=== PATIENT | female | born 1945 | race Caucasian/White ===

== ENCOUNTER 2022-06-20 11:24 | Outpatient (CLI) | payer MEDICARE, OTHER, SELFPAY ==
[2022-06-20 14:07] LABS: Chloride* 104 mmol/L (96-114); Sodium* 140 mmol/L (135-149)
[2022-06-20 14:09] LABS: Cholesterol* 262 mg/dL (90-199)
[2022-06-20 14:10] LABS: Blood Urea Nitrogen* 40 mg/dL (7-30); Carbon Dioxide* 23 mmol/L (20-32); Creatinine* 1.6 mg/dL (0.5-1.5); Estimated Glomerular Filt Rate 33 ml/min; Glucose* 105 mg/dL (60-115); Triglycerides* 194 mg/dL (40-149)
[2022-06-20 14:11] LABS: Calcium* 9.3 mg/dL (8.4-10.6); HDL Cholesterol* 44 mg/dL (>=50); LDL Cholesterol Calculated 179 mg/dL (<100)
[2022-06-20 15:21] LABS: TSH With Reflex to FT4* 0.651 uIU/mL (0.270-4.200)
== END 2022-06-20 11:25 | disposition home or self-care (01) ==
PROVIDERS: PCP Internal Medicine; Visit Provider Internal Medicine
DX: E78.5 Hyperlipidemia, unspecified (principal); E03.9 Hypothyroidism, unspecified; I10 Essential (primary) hypertension; M10.9 Gout, unspecified
CPT/HCPCS: 80048; 80061; 84443

== ENCOUNTER 2023-02-26 22:22 | Observation (INO) | payer OTHER, SELFPAY ==
[2023-02-26 22:28] VITALS: BP 169/66; PULSE 70; RESP 26; TEMP 36.4; O2SAT 93; BMI 26.6
--- NOTE | 2023-02-26 22:50 | CRLHL7_ITS ---
For Patients: As a result of the Century Cures Act, medical imaging exams and procedure reports are released immediately into your electronic medical record. You may view this report before your referring provider. If you have questions, please contact your health care provider. INDICATION: . TECHNIQUE: CT abdomen and pelvis without contrast. COMPARISON: None. FINDINGS: Lower chest: Partially imaged left lower lobe consolidation versus atelectasis and pleural effusion. Small right pleural effusion with passive atelectasis. Interlobular septal thickening. Cardiomegaly. Dilated, calcified aortic annulus. Liver: Normal in size and attenuation. No suspicious masses. Gallbladder and bile ducts: No stones or inflammation. No biliary dilatation. Pancreas: Unremarkable. No mass or inflammation. Spleen: Normal in size. No masses. Adrenal glands: Normal in size. No nodules. Kidneys, Ureters, and Bladder: Bilateral renal cortical cysts. No hydronephrosis, stone, or suspicious mass. The ureters and bladder are unremarkable. GI tract: Unremarkable. Normal in caliber. No sign of inflammation. Vasculature: Normal caliber abdominal aorta with mild atherosclerotic calcification. Left internal iliac artery stent. Lymph nodes: No lymphadenopathy. Peritoneum/Abdominal Wall: Unremarkable. No free air or significant free fluid. Pelvis: Status post hysterectomy. No pelvic masses. Bones: Right total hip arthroplasty. IMPRESSION: Left lower lobe consolidation versus atelectasis with bilateral pleural effusions and interlobular septal thickening. These findings are only partially imaged, but could represent pulmonary edema. Infection cannot be excluded. Consider chest CT for further evaluation. No acute findings within the abdomen and pelvis. No urolith or evidence of obstructive uropathy. Multiple, chronic ancillary findings, as above. Please note that all CT scans at this facility use dose modulation, iterative reconstruction, and/or weight-based dosing when appropriate to reduce radiation dose to as low as reasonably achievable. Dictated by Nestor Esteves MD @ 02/26/2023 11:55:04 PM (Electronically Signed)
--- NOTE | 2023-02-26 22:55 | ED.GENADULT ---
HPI - General Adult General Time Seen by Provider: 22:55 Date Seen: 02/26/23 Chief complaint: Shortness of Breath/Dyspnea Stated complaint: Short of Breath Time Seen by Provider: 02/26/23 22:23 Source: patient Mode of arrival: EMS Limitations: physical limitation History of Present Illness HPI narrative: Patient is a pleasant 78 year white female arrives by ambulance. She has had shortness of breath. She lives in [place] with her daughter. She has multiple medical problems including valvular heart disease, AFib chronic, stroke from AFib, anticoagulation. The patient does report though that her quality life is actually fairly good ?for someone who can get around in around ?. 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 She has also been out of her Lasix for the last several days probably 4-5 days, and has noted some fluid retention in her legs specially or left leg greater than right and shortness of breath. She also reports she has had some intermittent stomach pain that is been on and off in intensity but present all the time in her right upper quadrant and right mid abdomen. She reports that this has been waxing and waning. For last couple of days. She has had no vomiting fevers. . She has had no diarrhea, no constipation, no melena or bleeding rectally. She presents here with her daughter via ambulance. She got a nitro and felt a little better. She has had heart failure valvular heart disease, ischemic stroke, chronic AFib, pulmonary hypertension. When asked how we should proceed she is interested in looking at her abdominal pain, and helping her shortness of breath. Related Data Home Medications Medication Instructions Recorded Confirmed cholecalciferol (vitamin D3) 25 25 mcg PO QDAY 06/20/22 07/01/22 mcg (1,000 unit) capsule multivitamin 1 tab PO QAM 06/20/22 07/01/22 sotalol 80 mg tablet 80 mg PO BID 06/20/22 07/01/22 vitamin K2 100 mcg capsule 200 mcg PO DAILY 06/20/22 07/01/22 Previous Rx's Medication Instructions Recorded amlodipine 2.5 mg tablet 2.5 mg PO DAILY #90 tabs 06/20/22 losartan 50 mg tablet 50 mg PO DAILY #90 tabs 06/20/22 simvastatin 10 mg tablet 10 mg PO QPM #90 tabs 06/20/22 levothyroxine 88 mcg tablet 88 mcg PO .UD #78 tabs 08/02/22 colchicine 0.6 mg tablet 0.6 mg PO TID PRN gout #30 tabs 11/17/22 modafinil 100 mg tablet 100 mg PO QDAY #90 tabs 12/05/22 warfarin 4 mg tablet See Rx Instructions .Route 01/18/23 .COMPLEX #60 tabs furosemide 20 mg tablet 20 mg PO 3XW #36 tabs 02/21/23 Allergies Allergy/AdvReac Type Severity Reaction Status Date / Time gadodiamide Allergy Severe Anaphalacti Verified 07/01/22 11:05 c adhesive Allergy Intermediate Blisters Verified 07/01/22 11:05 benzoin Allergy Mild Garcia Verified 07/01/22 11:05 codeine Allergy Mild Swelling Verified 07/01/22 11:05 meperidine Allergy Mild Hypersensitive, Verified 07/01/22 11:05 headaches penicillin V Allergy Mild Swelling Verified 07/01/22 11:05 vancomycin Allergy Mild Body Verified 07/01/22 11:05 turned red, burning sensation shellfish derived Allergy Unknown Verified 07/01/22 11:05 Contrast dye Allergy Severe Anaphalacti Uncoded 07/01/22 11:05 c Erythromycin Allergy Severe Swelling Uncoded 07/01/22 11:05 of tongue DIATRIZOATE MEGLUMINE (IV Allergy Unknown Uncoded 07/01/22 11:05 CONTRAST UNLISTED ALLERGEN (INCLUDE Allergy Unknown Uncoded 07/01/22 11:05 DETAIL I Review of Systems Status of ROS: Reports: 6 or more systems reviewed and unremarkable except as noted in History and below [facility] Medical History (Updated 02/27/23 @ 08:27 by Rhiannon Le MD) Anticoagulation goal of INR 2 to 3 ?Z51.81 - Encounter for therapeutic drug level monitoring (ICD-10) ?Z79.01 - custodial (current) use of anticoagulants (ICD-10) Aortic valve regurgitation (12/28/11) ?I35.1 - Nonrheumatic aortic (valve) insufficiency (ICD-10) Aortic valve stenosis (10/03/11) ?I35.0 - Nonrheumatic aortic (valve) stenosis (ICD-10) Ascending aorta dilatation (08/03/18) ?I77.810 - Thoracic aortic ectasia (ICD-10) Chronic atrial fibrillation (10/03/11) ?I48.20 - Chronic atrial fibrillation, unspecified (ICD-10) Frailty syndrome in geriatric patient ?R54 - Age-related physical debility (ICD-10) Gout (07/08/13) ?M10.9 - Gout, unspecified (ICD-10) Heart failure with preserved ejection fraction ?I50.30 - Unspecified diastolic (congestive) heart failure (ICD-10) History of myocarditis (1978) ?Z86.79 - Personal history of other diseases of the circulatory system (ICD-10) Hyperlipidemia (10/03/11) ?E78.5 - Hyperlipidemia, unspecified (ICD-10) Hypothyroidism (10/03/11) ?E03.9 - Hypothyroidism, unspecified (ICD-10) Ischemic stroke (2010) ?I63.9 - Cerebral infarction, unspecified (ICD-10) Pulmonary hypertension (2017) ?I27.20 - Pulmonary hypertension, unspecified (ICD-10) Surgical History History of benign breast biopsy (1989) ?Z98.890 - Other specified postprocedural states (ICD-10) History of bladder suspension procedure (1980) ?Z98.890 - Other specified postprocedural states (ICD-10) ?Z87.448 - Personal history of other diseases of urinary system (ICD-10) History of carpal tunnel release (03/07/18) ?Z98.890 - Other specified postprocedural states (ICD-10) History of skin cancer ?Z85.828 - Personal history of other malignant neoplasm of skin (ICD-10) History of tonsillectomy (1945) ?Z90.89 - Acquired absence of other organs (ICD-10) History of total hip replacement (2007) ?Z96.649 - Presence of unspecified artificial hip joint (ICD-10) History of total knee replacement (1996) ?Z96.659 - Presence of unspecified artificial knee joint (ICD-10) History of vaginal hysterectomy (1989) ?Z90.710 - Acquired absence of both cervix and uterus (ICD-10) Status post cataract extraction (2012) ?Z98.49 - Cataract extraction status, unspecified eye (ICD-10) Family History Brother Colon cancer Social History Highest level of school completed/degree received: Associate degree: occupational, technical, vocational program Smoking Status: Never smoker Do you use any of these nicotine containing products: None Second hand tobacco smoke exposure: No How often do you have a drink containing alcohol: never How often do you have six or more drinks on one occasion: Never AUDIT-C Alcohol total score: 0 Non-prescribed substance use: denies use Caffeine: Yes (coffee) Little interest or pleasure in doing things: not at all Feeling down, depressed, or hopeless: not at all service: No Exam Narrative: Exam Narrative: Objective: Vital signs show slightly elevated blood pressure O2 sat 93% on room air, patient has an increased respiratory rate at 26. She is noncyanotic Talks in short sentences. HEENT is unremarkable no facial asymmetry neck is supple Lungs show basilar wheezes and crackles Heart rate and rhythm regular 2/6 systolic ejection murmur occasional ectopic beat noted Abdomen benign soft nontender, no palpable masses or peritonitis Extremities are no edema neurologic nonfocal Skin warm and dry in the periphery Const: Vital Signs, click to edit/add: Vital Signs - 24 hr 02/26/23 22:28 Temperature 97.5 F L Pulse Rate [Left] 70 Respiratory Rate 26 H Blood Pressure [Ri ght Upper Arm] 169/66 H Pulse Oximetry 93 Oxygen Delivery Me thod Room Air Course Vital Signs Vital signs: Initial Vital Signs Temperature 97.5 F L 02/26/23 22:28 Temperature Source Temporal Artery Scan 02/26/23 22:28 Pulse Rate 70 02/26/23 22:28 Pulse Rhythm Irregular 02/26/23 22:28 Respiratory Rate 26 H 02/26/23 22:28 Blood Pressure 169/66 H 02/26/23 22:28 Blood Pressure Mean 100 02/26/23 22:28 Pulse Oximetry 93 02/26/23 22:28 Oxygen Delivery Method Room Air 02/26/23 22:28 Vital Signs Temperature 97.5 F L 02/26/23 22:28 Pulse Rate 70 02/26/23 22:28 Respiratory Rate 26 H 02/26/23 22:28 Blood Pressure 169/66 H 02/26/23 22:28 Pulse Oximetry 93 02/26/23 22:28 Oxygen Delivery Method Room Air 02/26/23 22:28 Temperature 98.0 F 02/27/23 07:30 Pulse Rate 89 02/27/23 07:30 Respiratory Rate 14 02/27/23 07:30 Blood Pressure 115/67 02/27/23 07:30 Pulse Oximetry 95 02/27/23 07:30 Oxygen Delivery Method Room Air 02/27/23 07:30 Medical Decision Making MDM Narrative Medical decision making narrative: [age] year white female multiple medical problems, including congestive heart failure, ischemic stroke, chronic AFib, and valvular heart disease presents with shortness of breath and abdominal discomfort. She still has her gallbladder, she is in [place] working upper abdominal pains will get labs, CT scan without contrast of her abdomen and pelvis given her stage 3 kidney disease. I think also be reasonable to give her IV Lasix given she has been on Lasix for about 5 days, and I think that will help her breathing. Will to check a chest x-ray as well, IV Protonix for the abdominal discomfort, IV Lasix. EKG and troponin, laboratory studies. I think at this point given the patient's shortness of breath and abdominal pain we should admit her to observation IV diuresis serial cardiac enzymes, electrolyte checks, INR check. Will notify of L of admission Lab Data Labs: Lab Results 02/26/23 Range/Units 23:15 WBC 13.05 H (4.50-11.00) K/uL RBC 4.00 (4.00-5.20) m/uL Hgb 12.3 (12.0-16.0) gm/dL Hct 38.1 (33.0-51.0) % MCV 95 (80-100) fL MCH 31 (26-34) pg MCHC 32 (32-36) gm/dL RDW Coeff of Caleb 13.4 (11.5-15.5) % Plt Count 254 (140-440) K/uL Neut % (Auto) 81.7 H (42.0-72.0) % Lymph % (Auto) 7.4 L (20-44) % [place] % (Auto) 6.7 (0.0-11.0) % Eos % (Auto) 2.4 (0.0-7.0) % Baso % (Auto) 0.6 (0.0-3.0) % Neut # (Auto) 10.70 H (1.7-7.0) K/uL Lymph # (Auto) 1.00 (0.90-2.90) K/uL [place] # (Auto) 0.90 (0.00-0.90) K/UL Eos # (Auto) 0.30 (0.00-0.50) K/uL Baso # (Auto) 0.10 (0.00-0.30) K/uL INR 2.59 H (0.91-1.10) APTT 42 H (23-33) Seconds Sodium 138 (135-149) mmol/L Potassium 5.3 H (3.6-5.1) mmol/L Chloride 108 (96-114) mmol/L Carbon Dioxide 22 (20-32) mmol/L BUN 40 H (7-30) mg/dL Creatinine 1.2 (0.5-1.5) mg/dL Estimated Creat Clear 35.00 Estimated GFR 46 ml/min Glucose 133 H (60-115) mg/dL Calcium 8.6 (8.4-10.6) mg/dL Total Bilirubin 0.7 (0.1-1.5) mg/dL Direct Bilirubin 0.3 (0.0-0.5) mg/dL AST 53 H (12-35) U/L ALT 39 H (4-35) U/L Alkaline Phosphatase 84 (40-150) U/L Troponin I 0.04 (0.01-0.04) ng/mL C-Reactive Protein 2.2 H (0.5-1.0) mg/dL NT-Pro-B Natriuret Pep 29556 pg/mL Total Protein 8.1 (6.0-8.3) g/dL Albumin 4.1 (3.3-5.0) g/dL Amylase 68 (18-89) U/L SARS-CoV-2 (PCR) Negative SARS-CoV-2 (Negative) Influenza Type A (PCR) Negative PCR FLU A (Negative) Influenza Type B (PCR) Negative PCR FLU B (Negative) RSV (PCR) Negative PCR RSV (Negative) Discharge Plan Discharge Clinical Impression: Shortness of breath, Abdominal pain Patient Disposition: Admitted As Inpatient
[2023-02-26 23:23] LABS: Basophils Percent Auto 0.6 % (0.0-3.0); Eosinophils Percent Auto 2.4 % (0.0-7.0); Hematocrit 38.1 % (33.0-51.0); Hemoglobin* 12.3 gm/dL (12.0-16.0); Immature Granulocytes Pct Auto 1.2 %; Lymphocytes Percent Auto 7.4 % (20-44); Mean Corpuscular HGB Conc 32 gm/dL (32-36); Mean Corpuscular Hemoglobin 31 pg (26-34); Mean Corpuscular Volume 95 fL (80-100); Monocytes Percent Auto 6.7 % (0.0-11.0); Neutrophils Percent Auto 81.7 % (42.0-72.0); Platelet Count* 254 K/uL (140-440); RDW Coefficient of Variation % 13.4 % (11.5-15.5); White Blood Count* 13.05 K/uL (4.50-11.00)
[2023-02-26 23:27] LABS: Slide Review Reflex No
[2023-02-26] MEDS: FUROSEMIDE 10 MG/ML inj 80 MG IV (23:31)
[2023-02-26] MEDS: PANTOPRAZOLE SODIUM 40 MG INJ IVP (23:31)
[2023-02-26 23:37] LABS: Albumin* 4.1 g/dL (3.3-5.0); Chloride* 108 mmol/L (96-114)
[2023-02-26 23:38] LABS: Potassium* 5.3 mmol/L (3.6-5.1); Sodium* 138 mmol/L (135-149)
[2023-02-26 23:40] LABS: Amylase* 68 U/L (18-89); Aspartate Amino Transferase* 53 U/L (12-35); Bilirubin Direct* 0.3 mg/dL (0.0-0.5); Bilirubin Total* 0.7 mg/dL (0.1-1.5); Carbon Dioxide* 22 mmol/L (20-32); Creatinine* 1.2 mg/dL (0.5-1.5); Estimated Glomerular Filt Rate 46 ml/min; INR 2.59 (0.91-1.10); Total Protein* 8.1 g/dL (6.0-8.3)
[2023-02-26 23:41] LABS: Alanine Aminotransferase* 39 U/L (4-35); Alkaline Phosphatase* 84 U/L (40-150); Blood Urea Nitrogen* 40 mg/dL (7-30); Calcium* 8.6 mg/dL (8.4-10.6); Glucose* 133 mg/dL (60-115); Partial Thromboplastin Time* 42 Seconds (23-33)
[2023-02-26 23:43] LABS: C Reactive Protein* 2.2 mg/dL (0.5-1.0)
[2023-02-26 23:49] LABS: NT Pro B Type NatriureticPept* 18400 pg/mL
[2023-02-26 23:52] LABS: Troponin I* 0.04 ng/mL (0.01-0.04)
[2023-02-26 23:59] LABS: PCR FLU A Negative PCR FLU A (Negative); PCR FLU B Negative PCR FLU B (Negative); PCR RSV Negative PCR RSV (Negative)
[2023-02-27] VITALS (9 sets, daily range): BP systolic 103–144; BP diastolic 47–76; PULSE 63–89; RESP 14–24; TEMP 36.4–36.7; O2SAT 95–98; BMI 26.9
[2023-02-27 00:03] LABS: SARS PCR* Negative SARS-CoV-2 (Negative)
[2023-02-27] MEDS: DOXYCYCLINE HYCLATE 100 MG in 0.9 % SODIUM CHLORIDE Mini-bag 100 ML IVPB (02:40)
[2023-02-27] MEDS: 0.9 % SODIUM CHLORIDE 250 ml IV (02:44)
--- NOTE | 2023-02-27 03:11 | PC.NURSE ---
Addendum entered by Tamia Dave RN 02/27/23 05:56: Pt diuresed 3 lbs since admission. Weak, intermittent cough noted. Original Note: Admission note: Pt admitted to room 251 from ED via W/C @ 0050 dx: CHF. Pt A&O, SBA w/ cane, crackles in LLL, on RA. Admission completed, questions answered, oriented to unit. Matt completed assessment, ordered ABX for PNX, pt afebrile.
--- NOTE | 2023-02-27 03:25 | PM.IMCN1 ---
Date of Consult Consult date: 02/27/23 Primary Care Provider: Ally Murphy MD Consult Narrative Narrative: Linda Live is a 78 year old female [facility] Medical History History of myocarditis (1978) ?Z86.79 - Personal history of other diseases of the circulatory system (ICD-10) Surgical History History of benign breast biopsy (1989) ?Z98.890 - Other specified postprocedural states (ICD-10) History of bladder suspension procedure (1980) ?Z98.890 - Other specified postprocedural states (ICD-10) ?Z87.448 - Personal history of other diseases of urinary system (ICD-10) History of carpal tunnel release (03/07/18) ?Z98.890 - Other specified postprocedural states (ICD-10) History of skin cancer ?Z85.828 - Personal history of other malignant neoplasm of skin (ICD-10) History of tonsillectomy (1945) ?Z90.89 - Acquired absence of other organs (ICD-10) History of total hip replacement (2007) ?Z96.649 - Presence of unspecified artificial hip joint (ICD-10) History of total knee replacement (1996) ?Z96.659 - Presence of unspecified artificial knee joint (ICD-10) History of vaginal hysterectomy (1989) ?Z90.710 - Acquired absence of both cervix and uterus (ICD-10) Status post cataract extraction (2012) ?Z98.49 - Cataract extraction status, unspecified eye (ICD-10) Family History Brother Colon cancer Social History Highest level of school completed/degree received: Associate degree: occupational, technical, vocational program Smoking Status: Never smoker Do you use any of these nicotine containing products: None Second hand tobacco smoke exposure: No How often do you have a drink containing alcohol: never How often do you have six or more drinks on one occasion: Never AUDIT-C Alcohol total score: 0 Non-prescribed substance use: denies use Caffeine: Yes (coffee) Little interest or pleasure in doing things: not at all Feeling down, depressed, or hopeless: not at all service: No Meds Home Medications and Allergies Home Medications Medication Instructions Recorded Confirmed Type cholecalciferol (vitamin D3) 25 25 mcg PO QDAY 06/20/22 07/01/22 History mcg (1,000 unit) capsule multivitamin 1 tab PO QAM 06/20/22 07/01/22 History sotalol 80 mg tablet 80 mg PO BID 06/20/22 07/01/22 History vitamin K2 100 mcg capsule 200 mcg PO DAILY 06/20/22 07/01/22 History Allergies Allergy/AdvReac Type Severity Reaction Status Date / Time gadodiamide Allergy Severe Anaphalacti Verified 07/01/22 11:05 c adhesive Allergy Intermediate Blisters Verified 07/01/22 11:05 benzoin Allergy Mild Garcia Verified 07/01/22 11:05 codeine Allergy Mild Swelling Verified 07/01/22 11:05 meperidine Allergy Mild Hypersensitive, Verified 07/01/22 11:05 headaches penicillin V Allergy Mild Swelling Verified 07/01/22 11:05 vancomycin Allergy Mild Body Verified 07/01/22 11:05 turned red, burning sensation shellfish derived Allergy Unknown Verified 07/01/22 11:05 Contrast dye Allergy Severe Anaphalacti Uncoded 07/01/22 11:05 c Erythromycin Allergy Severe Swelling Uncoded 07/01/22 11:05 of tongue DIATRIZOATE MEGLUMINE (IV Allergy Unknown Uncoded 07/01/22 11:05 CONTRAST UNLISTED ALLERGEN (INCLUDE Allergy Unknown Uncoded 07/01/22 11:05 DETAIL I Exam Const: Vital Signs, click to edit/add: Vital Signs - 24 hr 02/26/23 22:28 02/27/23 01:15 02/27/23 01:15 Temperature 97.5 F L 97.7 F Pulse Rate [Left] 70 Pulse Rate [Pulse Oximeter] 63 Respiratory Rate 26 H 20 20 Blood Pressure [Ri ght Arm] 144/71 H Blood Pressure [Ri ght Upper Arm] 169/66 H Pulse Oximetry 93 95 95 Oxygen Delivery Me thod Room Air Room Air Room Air Labs Labs: Short CBC 02/26/23 Range/Units 23:15 WBC 13.05 H (4.50-11.00) K/uL Hgb 12.3 (12.0-16.0) gm/dL Hct 38.1 (33.0-51.0) % Plt Count 254 (140-440) K/uL BMP 02/26/23 23:15 Sodium 138 Potassium 5.3 H Chloride 108 Carbon Dioxide 22 BUN 40 H Creatinine 1.2 Glucose 133 H Calcium 8.6 Cardiac Enzymes 02/26/23 Range/Units 23:15 Troponin I 0.04 (0.01-0.04) ng/mL Liver Function 02/26/23 Range/Units 23:15 Total Bilirubin 0.7 (0.1-1.5) mg/dL Direct Bilirubin 0.3 (0.0-0.5) mg/dL AST 53 H (12-35) U/L ALT 39 H (4-35) U/L Alkaline Phosphatase 84 (40-150) U/L Albumin 4.1 (3.3-5.0) g/dL Assessment and Plan Assessment and plan (1) Shortness of breath: Status: Acute Plan [facility] Hospitalist eHospitalist was contacted with request of consultation for elderly patient presenting with worsening shortness of breath and abdominal pain History of present illness: The patient is a 78-year-old woman with a past medical history of congestive heart failure, chronic kidney disease, hypothyroidism, essential hypertension, atrial fibrillation on warfarin and sotalol who presents with worsening shortness of breath for the last 1 to 2 days as well as worsening abdominal pain. She says that she has chronic shortness of breath but it has gotten worse in the last 1 to 2 days with shortness of breath at mild exertion. She is also had a chronic productive cough has become little bit more productive in the last day or so. She denies any fevers, chills or chest pain. She is also had a chronic abdominal pain for the last couple of months but she is felt that is gotten worse in the last few days. The pain is described as shooting pain that is present in the upper abdomen but then spreads to all of the abdomen with no specific aggravating or relieving factors and no associated symptoms of nausea, vomiting or diarrhea. In the emergency room she was noted to be mildly tachypneic and to have a leukocytosis to 13,000. NT proBNP level was around 18,000. She was given 80 mg of IV Lasix with improvement of symptoms. CT abdomen pelvis without contrast was done which did not show any acute abdominal pathology but did show suspicion for left lower lobe consolidation. When I spoke to the patient on video she is felt more comfortable after receiving IV Lasix. She had also run out of her furosemide for the last several days. She is otherwise compliant with other medications Home Medications: see EMR Pertinent Medical History: As per HPI Pertinent Social History: Noncontributory Exam (performed via interactive video with assistance of bedside nurse): Temperature 97.7 blood pressure 144/71 mmHg pulse 63 respirations 20 O2 sat 95% room air General: alert, cooperative, no acute distress HEENT: oral mucosa pink and moist without erythema Lungs decreased breath sounds with coarse crackles in the left lung base CV: regular rate and rhythm without loud murmur rub or gallop Abd: denies tenderness and does not exhibit signs of pain with palpation done by bedside nurse Ext: no pitting edema noted Skin: no rashes, bruises or lesions appreciated on gross visualization of exposed skin Neuro:[alert, oriented x 3. facial muscles grossly intact, moves all extremities without any significant focal deficit appreciated by nurse Pertinent labs and imaging WBC 13.05 with 81% neutrophils INR 2.59 Sodium 138, potassium 5.3, BUN 40, creatinine 1.2, glucose 133, AST 53, ALT 39, C-reactive protein 2.2, NT proBNP 18,400 CT abdomen pelvis does not show any acute intra-abdominal pathology. Left lower lobe consolidation versus atelectasis with bilateral pleural effusions and interlobular septal thickening. Infection cannot be excluded COVID and flu negative Assessment and Plan: The patient likely presents with community-acquired bacterial pneumonia triggering acute exacerbation of diastolic heart failure. She is mildly tachypneic but not hypoxic and otherwise hemodynamically stable. She is afebrile, but does have leukocytosis with elevated CRP and a CT scan findings suggestive of left lower lobe consolidation. She is COVID and flu negative. -We will start on ceftriaxone 1 g IV daily and doxycycline 100 mg IV every 12. I chose doxycycline over azithromycin because of concerns about QT prolongation especially in setting of using sotalol -Continue Lasix 40 mg IV daily for the next 24 to 48 hours -Continue Synthroid and pantoprazole -INR is therapeutic continue warfarin 4 mg Monday and 2 mg on the other days -Follow-up CBC, CMP and procalcitonin in a.m. Thank you for including [facility] in the patients care. This service is available for further assistance as requested by your care team by calling [phone].
[2023-02-27] MEDS: cefTRIAXone 1 GM in 0.9 % SODIUM CHLORIDE Mini-bag 100 ML IVPB (03:48)
[2023-02-27 06:58] LABS: Basophils Absolute Auto 0.06 K/uL (0.00-0.30); Basophils Percent Auto 0.7 % (0.0-3.0); Eosinophils Absolute Auto 0.41 K/uL (0.00-0.50); Hematocrit 37.2 % (33.0-51.0); Immature Granulocytes Abs Auto 0.02 K/uL (0.00-0.30); Immature Granulocytes Pct Auto 0.2 %; Lymphocytes Percent Auto 16.5 % (20-44); Mean Corpuscular HGB Conc 32 gm/dL (32-36); Mean Corpuscular Hemoglobin 30 pg (26-34); Mean Corpuscular Volume 94 fL (80-100); Monocytes Percent Auto 8.4 % (0.0-11.0); Neutrophils Absolute Auto 5.65 K/uL (1.7-7.0); Neutrophils Percent Auto 69.2 % (42.0-72.0); Platelet Count* 210 K/uL (140-440); RDW Coefficient of Variation % 13.2 % (11.5-15.5); Red Blood Count 3.96 m/uL (4.00-5.20); White Blood Count* 8.18 K/uL (4.50-11.00)
[2023-02-27 06:59] LABS: Slide Review Reflex No
[2023-02-27 07:10] LABS: Chloride* 107 mmol/L (96-114)
[2023-02-27 07:11] LABS: Potassium* 4.1 mmol/L (3.6-5.1); Sodium* 139 mmol/L (135-149)
[2023-02-27 07:13] LABS: Aspartate Amino Transferase* 39 U/L (12-35); Bilirubin Total* 0.7 mg/dL (0.1-1.5); Blood Urea Nitrogen* 39 mg/dL (7-30); Carbon Dioxide* 25 mmol/L (20-32); Creatinine* 1.3 mg/dL (0.5-1.5); Est. Creatinine Clearance* 32.31; Estimated Glomerular Filt Rate 42 ml/min; Total Protein* 7.9 g/dL (6.0-8.3)
[2023-02-27 07:14] LABS: Alanine Aminotransferase* 35 U/L (4-35); Alkaline Phosphatase* 72 U/L (40-150); Calcium* 8.6 mg/dL (8.4-10.6); Glucose* 97 mg/dL (60-115); INR 2.44 (0.91-1.10); Prothrombin Time 27.7 Seconds
[2023-02-27 07:31] LABS: Procalcitonin* 0.12 ng/mL (<0.50)
--- NOTE | 2023-02-27 07:40 | CRLHL7_ITS ---
For Patients: As a result of the Century Cures Act, medical imaging exams and procedure reports are released immediately into your electronic medical record. You may view this report before your referring provider. If you have questions, please contact your health care provider. INDICATION: [id number]. TECHNIQUE: Chest 1 views. COMPARISON: CT abdomen pelvis 02/26/2023. FINDINGS: Cardiovasculature and mediastinum: The cardiac silhouette is mildly enlarged. The pulmonary vascularity is within normal limits. Lungs and pleural spaces: There is a trace left pleural effusion there is patchy airspace opacity left lung base. Right lung is clear. No pneumothorax is detected. Bones and soft tissues: No significant findings. IMPRESSION: Small left pleural effusion and patchy opacity at the left lung base, suspicious for pneumonia in the appropriate clinical context. Dictated by Héctor Dickens MD @ 02/27/2023 8:39:47 AM (Electronically Signed)
--- NOTE | 2023-02-27 08:16 | PM.IMHP1 ---
Hospitalist- H&P: HPI History of Present Illness Time Seen by Provider: 08:06 Date Seen: 02/27/23 Chief complaint: Short of Breath Narrative: Linda Live is a 78 year old female with a complicated cardiopulmonary history who presents with worsening shortness of breath on exertion at home. She ran out of Lasix last Monday and called her clinic to get it refilled, but for some reason it was not available yet and so she has not had any Lasix since then. She has been more short of breath on exertion and noted some intermittent abdominal pain over the last couple days as well. She denies any fevers or chills, chest pain or pressure. Things got bad enough yesterday that she felt she needed to come to the emergency department. She got Lasix overnight and is feeling better today. Her abdominal pain is gone. She is less short of breath moving around, but still has a little bit of a cough. She has had worsening lower extremity edema over the last few days and this is not yet better. She lives with her daughter and 3 granddaughters. She notes that general it is getting harder for her to care for herself. She has thought about assisted living, but does not have the money for that. She last saw her atomic spectroscopist in May or year and a half ago, she is not sure which. She tells me she has been told she needs cardiac surgery but she is not sure she would be able to do the cardiac rehab afterward, so she has not pursued this. Review of Systems Status of ROS: Reports: 10 or more systems reviewed and unremarkable except as noted in History and below Const: Reports: fatigue (increasing over a few months - pt attributes this to bad heart valves); Denies: fever or chills Cardio: Reports: swelling of feet/ankles and shortness of breath with exertion (Worse over the last few weeks to months); Denies: chest pain or palpitations Resp: Reports: shortness of breath (Worse over the last few weeks to months); Denies: cough, wheezing, stridor, change in phlegm color or chest congestion GI: Reports: abdominal pain (Gone now); Denies: nausea, vomiting, diarrhea, constipation or bloating : Denies: painful urination, urinary frequency, urinary urgency or urinary incontinence Musculo: Denies: back pain Integ/Breast: Denies: rash or itching Neuro: Denies: headache, numbness in extremities, weakness in extremities or lack of coordination Endo: Reports: fatigue (increasing over a few months - pt attributes this to bad heart valves) Allergy/Immuno: Denies: wheezing [facility] Medical History (Updated 02/27/23 @ 14:48 by Rhiannon Le MD) Anticoagulation goal of INR 2 to 3 ?Z51.81 - Encounter for therapeutic drug level monitoring (ICD-10) ?Z79.01 - intermodal truck driver (current) use of anticoagulants (ICD-10) Aortic valve regurgitation (12/28/11) ?I35.1 - Nonrheumatic aortic (valve) insufficiency (ICD-10) Aortic valve stenosis (10/03/11) ?I35.0 - Nonrheumatic aortic (valve) stenosis (ICD-10) Ascending aorta dilatation (08/03/18) ?I77.810 - Thoracic aortic ectasia (ICD-10) Chronic atrial fibrillation (10/03/11) ?I48.20 - Chronic atrial fibrillation, unspecified (ICD-10) Frailty syndrome in geriatric patient ?R54 - Age-related physical debility (ICD-10) Gout (07/08/13) ?M10.9 - Gout, unspecified (ICD-10) Heart failure with preserved ejection fraction ?I50.30 - Unspecified diastolic (congestive) heart failure (ICD-10) History of myocarditis (1978) ?Z86.79 - Personal history of other diseases of the circulatory system (ICD-10) Hyperlipidemia (10/03/11) ?E78.5 - Hyperlipidemia, unspecified (ICD-10) Hypothyroidism (10/03/11) ?E03.9 - Hypothyroidism, unspecified (ICD-10) Ischemic stroke (2010) ?I63.9 - Cerebral infarction, unspecified (ICD-10) Pulmonary hypertension (2018) ?I27.20 - Pulmonary hypertension, unspecified (ICD-10) Surgical History History of benign breast biopsy (1989) ?Z98.890 - Other specified postprocedural states (ICD-10) History of bladder suspension procedure (1980) ?Z98.890 - Other specified postprocedural states (ICD-10) ?Z87.448 - Personal history of other diseases of urinary system (ICD-10) History of carpal tunnel release (03/07/18) ?Z98.890 - Other specified postprocedural states (ICD-10) History of skin cancer ?Z85.828 - Personal history of other malignant neoplasm of skin (ICD-10) History of tonsillectomy (1945) ?Z90.89 - Acquired absence of other organs (ICD-10) History of total hip replacement (2007) ?Z96.649 - Presence of unspecified artificial hip joint (ICD-10) History of total knee replacement (1996) ?Z96.659 - Presence of unspecified artificial knee joint (ICD-10) History of vaginal hysterectomy (1989) ?Z90.710 - Acquired absence of both cervix and uterus (ICD-10) Status post cataract extraction (2012) ?Z98.49 - Cataract extraction status, unspecified eye (ICD-10) Family History Brother Colon cancer Social History Highest level of school completed/degree received: Associate degree: occupational, technical, vocational program Smoking Status: Never smoker Do you use any of these nicotine containing products: None Second hand tobacco smoke exposure: No How often do you have a drink containing alcohol: never How often do you have six or more drinks on one occasion: Never AUDIT-C Alcohol total score: 0 Non-prescribed substance use: denies use Caffeine: Yes (coffee) Little interest or pleasure in doing things: not at all Feeling down, depressed, or hopeless: not at all service: No Meds Home Medications and Allergies Home Medications Medication Instructions Recorded Confirmed Type cholecalciferol (vitamin D3) 25 25 mcg PO QDAY 06/20/22 02/27/23 History mcg (1,000 unit) capsule multivitamin 1 tab PO QAM 06/20/22 02/27/23 History sotalol 80 mg tablet 80 mg PO BID 06/20/22 02/27/23 History vitamin K2 100 mcg capsule 200 mcg PO DAILY 06/20/22 02/27/23 History Allergies Allergy/AdvReac Type Severity Reaction Status Date / Time gadodiamide Allergy Severe Anaphalacti Verified 07/01/22 11:05 c adhesive Allergy Intermediate Blisters Verified 07/01/22 11:05 benzoin Allergy Mild Garcia Verified 07/01/22 11:05 codeine Allergy Mild Swelling Verified 07/01/22 11:05 meperidine Allergy Mild Hypersensitive, Verified 07/01/22 11:05 headaches penicillin V Allergy Mild Swelling Verified 07/01/22 11:05 vancomycin Allergy Mild Body Verified 07/01/22 11:05 turned red, burning sensation shellfish derived Allergy Unknown Verified 07/01/22 11:05 Contrast dye Allergy Severe Anaphalacti Uncoded 07/01/22 11:05 c Erythromycin Allergy Severe Swelling Uncoded 07/01/22 11:05 of tongue DIATRIZOATE MEGLUMINE (IV Allergy Unknown Uncoded 07/01/22 11:05 CONTRAST UNLISTED ALLERGEN (INCLUDE Allergy Unknown Uncoded 07/01/22 11:05 DETAIL I Exam Narrative: Exam Narrative: General: No acute distress. Awake alert oriented x3. Sitting up eating breakfast at the side of the bed. HEENT: Normocephalic atraumatic, pupils equally round and reactive to light and accommodation. Oropharynx clear. Mucous membranes are moist. No cervical lymphadenopathy, thyromegaly or carotid bruits. No JVD. Cardiovascular: Regular rate and rhythm. No murmurs, gallops, or rubs. Chest: No increased work of breathing. Clear to auscultation bilaterally. No crackles or wheezes. Abdomen: Bowel sounds present. Soft, nondistended, nontender. No hepatosplenomegaly or masses. Extremities: 1+ bilateral tibial pitting edema, no cyanosis or clubbing. Skin: No jaundice, no pallor, no rashes. Neuro: Grossly intact. No focal deficits. Const: Vital Signs, click to edit/add: Vital Signs - 24 hr 02/26/23 22:28 02/27/23 01:15 02/27/23 01:15 Temperature 97.5 F L 97.7 F Pulse Rate [Left] 70 Pulse Rate [Pulse Oximeter] 63 Respiratory Rate 26 H 20 20 Blood Pressure [Ri ght Arm] 144/71 H Blood Pressure [Ri ght Upper Arm] 169/66 H Pulse Oximetry 93 95 95 Oxygen Delivery Me thod Room Air Room Air Room Air 02/27/23 03:45 02/27/23 07:30 Temperature 97.6 F 98.0 F Pulse Rate [Left] Pulse Rate [Pulse Oximeter] 88 89 Respiratory Rate 20 14 Blood Pressure [Ri ght Arm] 103/48 L 115/67 Blood Pressure [Ri ght Upper Arm] Pulse Oximetry 95 95 Oxygen Delivery Me thod Room Air Room Air Hospitalist - H&P: Result Labs Labs: Short CBC 02/26/23 02/27/23 Range/Units 23:15 06:50 WBC 13.05 H 8.18 (4.50-11.00) K/uL Hgb 12.3 12.0 (12.0-16.0) gm/dL Hct 38.1 37.2 (33.0-51.0) % Plt Count 254 210 (140-440) K/uL BMP 02/26/23 02/27/23 23:15 06:50 Sodium 138 139 Potassium 5.3 H 4.1 Chloride 108 107 Carbon Dioxide 22 25 BUN 40 H 39 H Creatinine 1.2 1.3 Glucose 133 H 97 Calcium 8.6 8.6 Cardiac Enzymes 02/26/23 Range/Units 23:15 Troponin I 0.04 (0.01-0.04) ng/mL Liver Function 02/26/23 02/27/23 Range/Units 23:15 06:50 Total Bilirubin 0.7 0.7 (0.1-1.5) mg/dL Direct Bilirubin 0.3 (0.0-0.5) mg/dL AST 53 H 39 H (12-35) U/L ALT 39 H 35 (4-35) U/L Alkaline Phosphatase 84 72 (40-150) U/L Albumin 4.1 4.0 (3.3-5.0) g/dL Ordering Physician: Claude Austin M.D. Date of Service: 02/26/23 Procedure(s): CT abdomen pelvis wo [facility] Accession Number(s): [id number] cc: Ally Murphy M.D.; Claude Austin M.D.~ For Patients: As a result of the 21st Century Cures Act, medical imaging exams and procedure reports are released immediately into your electronic medical record. You may view this report before your referring provider. If you have questions, please contact your health care provider. INDICATION: . TECHNIQUE: CT abdomen and pelvis without contrast. COMPARISON: None. FINDINGS: Lower chest: Partially imaged left lower lobe consolidation versus atelectasis and pleural effusion. Small right pleural effusion with passive atelectasis. Interlobular septal thickening. Cardiomegaly. Dilated, calcified aortic annulus. Liver: Normal in size and attenuation. No suspicious masses. Gallbladder and bile ducts: No stones or inflammation. No biliary dilatation. Pancreas: Unremarkable. No mass or inflammation. Spleen: Normal in size. No masses. Adrenal glands: Normal in size. No nodules. Kidneys, Ureters, and Bladder: Bilateral renal cortical cysts. No hydronephrosis, stone, or suspicious mass. The ureters and bladder are unremarkable. GI tract: Unremarkable. Normal in caliber. No sign of inflammation. Vasculature: Normal caliber abdominal aorta with mild atherosclerotic calcification. Left internal iliac artery stent. Lymph nodes: No lymphadenopathy. Peritoneum/Abdominal Wall: Unremarkable. No free air or significant free fluid. Pelvis: Status post hysterectomy. No pelvic masses. Bones: Right total hip arthroplasty. IMPRESSION: Left lower lobe consolidation versus atelectasis with bilateral pleural effusions and interlobular septal thickening. These findings are only partially imaged, but could represent pulmonary edema. Infection cannot be excluded. Consider chest CT for further evaluation. No acute findings within the abdomen and pelvis. No urolith or evidence of obstructive uropathy. Multiple, chronic ancillary findings, as above. Please note that all CT scans at this facility use dose modulation, iterative reconstruction, and/or weight-based dosing when appropriate to reduce radiation dose to as low as reasonably achievable. Dictated by Nestor Esteves MD @ 02/26/2023 11:55:04 PM (Electronically Signed) Ordering Physician: Rhiannon Le M.D. Date of Service: 02/27/23 Procedure(s): XR chest 1V portable Accession Number(s): [id number] cc: Ally Murphy M.D.; Rhiannon Le M.D.~ For Patients: As a result of the 21st Century Cures Act, medical imaging exams and procedure reports are released immediately into your electronic medical record. You may view this report before your referring provider. If you have questions, please contact your health care provider. INDICATION: [id number]. TECHNIQUE: Chest 1 views. COMPARISON: CT abdomen pelvis 02/26/2023. FINDINGS: Cardiovasculature and mediastinum: The cardiac silhouette is mildly enlarged. The pulmonary vascularity is within normal limits. Lungs and pleural spaces: There is a trace left pleural effusion there is patchy airspace opacity left lung base. Right lung is clear. No pneumothorax is detected. Bones and soft tissues: No significant findings. IMPRESSION: Small left pleural effusion and patchy opacity at the left lung base, suspicious for pneumonia in the appropriate clinical context. Dictated by Héctor Dickens MD @ 02/27/2023 8:39:47 AM (Electronically Signed) Assessment and Plan Assessment and plan (1) Pneumonia: Status: Acute (2) CHF exacerbation: Status: Acute (3) Heart failure with preserved ejection fraction: Problem comment: Followed by cardiology, moderate to severe AR on Echo, latest ECHO 05/15. Echocardiogram pending. Status: Chronic (4) Hypothyroidism: Problem comment: Continue replacement Status: Chronic (5) Pulmonary hypertension: Problem comment: Noticed on ECHO 09/13, has significant valvular heart disease. Status: Chronic (6) Hyperlipidemia: Problem comment: she stopped simvastatin on her own Spring 2020 Status: Chronic (7) Frailty syndrome in geriatric patient: Status: Chronic (8) Chronic atrial fibrillation: Problem comment: On warfarin, seen by [facility] atomic spectroscopist and sotalol increased 08/14 (for RVR) - Rate controlled, continue sotalol. Status: Chronic (9) Anticoagulation goal of INR 2 to 3: Problem comment: Indication: Chronic Atrial Fibrillation Duration: Lifetime Patient uses [employer] home monitor INR is therapeutic. Continue monitoring daily. Status: Chronic (10) Ascending aorta dilatation: Problem comment: Seen by ECHO (at 4.2 cm) 08/14, 06/16. Status: Chronic (11) Aortic valve stenosis: Problem comment: Mild by 03/07 ECHO, latest ECHO 04/07, 07/09, 10/10, moderate by ECHO 06/14, severe by 06/16 (followed yearly by [facility] cardiology), TAVR recommended by cardiology 06/16. Patient has declined to pursue this. Status: Chronic (12) Aortic valve regurgitation: Problem comment: Moderate by 03/07 ECHO, latest ECHO 04/07, 07/09, 10/10, recheck q3-5Y, moderate to severe by ECHO 08/14, moderate to severe regurgitation by ECHO 05/15 (followed yearly by [facility] cardiology) Status: Chronic (13) Chronic kidney disease, stage 3: Problem comment: CR 1.6 06/17, creatinine 1.3 today. Stable. Status: Acute (14) Essential hypertension: Problem comment: I am holding her home amlodipine due to soft blood pressures. Status: Acute Plan HF bad heart valves? ECHO PT/OT outpt PCP, cards, pulm?
[2023-02-27] MEDS: FUROSEMIDE 10 MG/ML inj 40 MG IVP (08:47)
[2023-02-27] MEDS: SOTALOL HCL 80 MG TABLET PO ×2 (09:33→21:25)
[2023-02-27] MEDS: LEVOTHYROXINE 88 MCG TABLET 44 MCG PO (09:37)
--- NOTE | 2023-02-27 10:05 | NUTR.NU ---
RDN with diet education related to CHF. Patient with a history of CHF. RDN visited with patient whom agreed to diet education. Nutrition education provided on a low sodium diet related to congestive heart failure. Verbal and written information provided. Recommend limiting sodium to 2,000 mg per day. Discussed foods recommended and to avoid. Handouts provided from [facility] on heart failure nutrition therapy, sodium content of foods, heart healthy label reading tips, sodium-free flavoring tips and heart healthy cooking and shopping tips. Patient verbalized understanding. RDN's contact information was provided and patient was encouraged to call with questions.
--- NOTE | 2023-02-27 14:47 | PC.NURSE ---
End of shift: Patient A&O. SBA with a walker. SOB with exertion.Sats remain in the mid 90s with activity. VS WNL. No pain reported. Tolerating diet.
[2023-02-27] MEDS: WARFARIN 2 MG TABLET 4 MG PO (18:01)
[2023-02-27] MEDS: SIMVASTATIN 10 MG TABLET PO (18:01)
[2023-02-27] MEDS: DOXYCYCLINE HYCLATE 100 MG CAPSULE PO (21:25)
--- NOTE | 2023-02-27 23:31 | PC.NURSE ---
Nursing Care Hours: [id number] Pt this shift calm and cooperative, alert and oriented. SB assist with walker. No c/o pain. SOB after using the bathroom and heard while talking on phone. VSS. Fine crackles heard posterior bases, non productive cough. IV patent. Oral cares and face washed at HS.
[2023-02-28] MEDS: cefTRIAXone 1 GM in 0.9 % SODIUM CHLORIDE Mini-bag 100 ML IVPB (02:22)
[2023-02-28] MEDS: 0.9 % SODIUM CHLORIDE 250 ml IV (02:29)
[2023-02-28 02:30] VITALS: BP 116/42; PULSE 72; RESP 18; TEMP 36.4; O2SAT 94
[2023-02-28] MEDS: ACETAMINOPHEN 325 MG TABLET 650 MG PO (04:49)
[2023-02-28] MEDS: LEVOTHYROXINE 88 MCG TABLET PO (06:48)
[2023-02-28 06:57] LABS: INR 2.47 (0.91-1.10)
[2023-02-28 07:00] VITALS: BP 149/65; PULSE 62; RESP 16; TEMP 36.8; O2SAT 98
--- NOTE | 2023-02-28 07:05 | PC.NURSE ---
Pt alert and oriented x3. Afebrile. Pt reported pain 4/10 in right knee, pain managed with PRN medications Tylenol. Pt is on room air with 02 sats between 94-96%, Pt?s posterior base lung sounds have fine crackles, pt is encouraged to cough, deep breath and use the incentive spirometer.?Pt has SOB with exertion. Pt is tolerating a therapeutic?diet. Pt is up SBA with walker and gait belt. Pt slept throughout most of night.??
[2023-02-28] MEDS: FUROSEMIDE 10 MG/ML inj 40 MG IVP (08:50)
[2023-02-28] MEDS: SOTALOL HCL 80 MG TABLET PO (08:50)
[2023-02-28] MEDS: DOXYCYCLINE HYCLATE 100 MG CAPSULE PO (08:51)
[2023-02-28] MEDS: LOSARTAN POTASSIUM 50 MG TABLET PO (08:51)
--- NOTE | 2023-02-28 10:25 | PM.DS1 ---
DS: Providers Provider Time Seen by Provider: 08:05 Date Seen: 02/28/23 Date of admission: 02/27/23 00:46 Primary care physician: Ally Murphy MD Admitting Clinician: Charly Araujo MD Consults: 02/27/23 Consult to Physical Therapy [CONS] Routine Comment: Reason(s) for PT Consult:: Evaluate and Treat Any Restrictions?:: No Restrictions 02/27/23 12:07 Consult to Occupational Therapy [CONS] Routine Comment: Reason(s) for OT Consult:: Evaluate and Treat Any Restrictions?:: No Restrictions Consult to Physical Therapy [CONS] Routine Comment: Reason(s) for PT Consult:: Evaluate and Treat Any Restrictions?:: No Restrictions Attending Physician on discharge: Rhiannon Le MD Date of Discharge: 02/28/23 DS: Diagnosis Discharge Diagnosis (1) Pneumonia: Status: Acute Problem details: Has not needed oxygen. Treat with about 5 d of antibiotics for CAP. (2) CHF exacerbation: Status: Acute Problem details: Likely secondary to having stopped diuretic due to having run out. Also, EF is worse. Needs outpatient cardiology f/u. (3) Hypothyroidism: Status: Chronic Problem details: Continue replacement (4) Pulmonary hypertension: Status: Chronic Problem details: Noticed on ECHO 09/13, has significant valvular heart disease. (5) Ischemic stroke: Status: Resolved Problem details: Right basal ganglia infarct with mild hemorrhagic conversion by outside MRI, Nov 2010, related to atrial fibrillation, continue warfarin. (6) Hyperlipidemia: Status: Chronic Problem details: she stopped simvastatin on her own Spring 2020 (7) Heart failure with preserved ejection fraction: Status: Chronic Problem details: Followed by cardiology, moderate to severe AR on Echo, latest ECHO 05/15. EF reduced, 30-35%. (8) Frailty syndrome in geriatric patient: Status: Chronic Problem details: We discussed assisted living and NH. SW spoke with patient and daughter to give them numbers and resources. (9) Chronic atrial fibrillation: Status: Chronic Problem details: On warfarin, seen by [facility] green meat packer and sotalol increased 08/14 (for RVR) - Rate controlled, continue sotalol. INR therapeutic on discharge (10) Ascending aorta dilatation: Status: Chronic Problem details: Seen by ECHO (at 4.2 cm) 08/14, 06/16. (11) Aortic valve stenosis: Status: Chronic Problem details: Mild by 03/07 ECHO, latest ECHO 04/07, 07/09, 10/10, moderate by ECHO 06/14, severe by 06/16 (followed yearly by [facility] cardiology), TAVR recommended by cardiology 06/16. Patient has declined to pursue this in the past. See my discussion in Summary below. (12) Aortic valve regurgitation: Status: Chronic Problem details: Moderate by 03/07 ECHO, latest ECHO 04/07, 07/09, 10/10, recheck q3-5Y, moderate to severe by ECHO 08/14, moderate to severe regurgitation by ECHO 05/15 (followed yearly by [facility] cardiology) (13) Anticoagulation goal of INR 2 to 3: Status: Chronic Problem details: Indication: Chronic Atrial Fibrillation Duration: Lifetime Patient uses [employer] home monitor INR remains therapeutic. (14) Chronic kidney disease, stage 3: Status: Acute Problem details: CR 1.6 06/17, creatinine 1.3. Stable. (15) Essential hypertension: Status: Acute Problem details: resume home meds (16) Cerebrovascular disease: Status: Acute Problem details: Right basal ganglia ischemic infarct with mild hemorrhagic conversion by outside MRI, Nov 2010, related to atrial fibrillation, now on warfarin (she stopped simvastatin on her own Spring 2020) (17) Anxiety: Status: Acute DS: Summary Hospital Course Hospital Course: This is an 78-year-old female with multiple known chronic cardiac issues including heart failure and severe aortic stenosis who ran out of Lasix several days prior to admission and presented with worsening shortness of breath on exertion. Echocardiogram was obtained and does show a reduced EF which is worse than before. I spoke with Linda alone this morning and later in the day with Linda and her daughter together. Linda has said that she does not think she would be able to go through the with the procedure or the cardiac rehab involved afterward. She is leaning toward comfort cares and possibly hospice. Her daughter wanted me to transfer linda emergently to [place] for a TAVR, but at the same time noted that they have known about severe aortic stenosis for several years and just have not been able to get her up to Cardiology appointments for multiple different reasons. Her daughter notes that in the fall they were supposed to go up to [place] for further testing prior to TAVR, but the oldest granddaughter had some medical issues which took precedence and they never rescheduled. I said that at this point the next step would be to see green [facility] packer again as an outpatient if they wanted to pursue this. Linda's daughter said that she was not sure she would be able to get linda to go to the appointment because Linda is usually tired and difficult to get out of the house. I spoke with them about the possibility of comfort cares or hospice and had the social director go in to talk with them about options for that as well as assisted living or longterm. I asked Linda to follow-up with Dr. Murphy in a few days. Time Spent with Patient Time attestation: Total time spent providing and/or coordinating discharge services: Exam Narrative: Exam Narrative: General: No acute distress. Awake alert oriented. Cardiovascular: Irregularly irregular. Harsh murmur loudest at the right upper sternal border. Chest: No increased work of breathing. Clear to auscultation bilaterally. No crackles or wheezes. Abdomen: Bowel sounds present. Soft, nondistended, nontender. Extremities: Trace bilateral tibial pitting edema. Const: Vital Signs, click to edit/add: Vital Signs - 24 hr 02/27/23 11:00 02/27/23 11:45 02/27/23 15:00 Temperature 97.7 F Pulse Rate [Apical ] Pulse Rate [Pulse Oximeter] 83 73 73 Respiratory Rate 14 22 22 Blood Pressure [Le ft Arm] Blood Pressure [Ri ght Arm] 116/48 L 117/47 L Pulse Oximetry 95 96 Oxygen Delivery Me thod Room Air Room Air 02/27/23 15:00 02/27/23 19:00 02/27/23 11:35 Temperature Pulse Rate [Apical ] 63 Pulse Rate [Pulse Oximeter] 73 67 63 Respiratory Rate 24 24 20 Blood Pressure [Le ft Arm] 138/76 Blood Pressure [Ri ght Arm] 142/51 H Pulse Oximetry 98 95 Oxygen Delivery Me thod Room Air Room Air 02/27/23 11:35 02/28/23 02:30 02/28/23 07:00 Temperature 97.9 F 97.6 F 98.3 F Pulse Rate [Apical ] Pulse Rate [Pulse Oximeter] 63 72 62 Respiratory Rate 20 18 16 Blood Pressure [Le ft Arm] 149/65 H Blood Pressure [Ri ght Arm] 126/73 116/42 L Pulse Oximetry 96 94 98 Oxygen Delivery Me thod Room Air Room Air Room Air Documenting provider has reviewed patient's vital signs: yes DS: Data Data Completed and Pending Completed studies during hospitalization: 02/26/2023 10:31 p.m. EKG: Atrial fibrillation with premature ventricular or aberrantly conducted complexes. Heart rate 65 beats per minute. 02/27/2023 echocardiogram: Technically limited exam, LVEF 30-35%. Moderate LV dilatation LVIDd 6.0 cm. Normal RV size with preserved global function. Moderate to severe aortic stenosis, peak velocity 3.4 m/sec, mean gradient 29 mm Hg, valve area 0.87 centimeter squared, DI 0.2 to. SP index is normal. [id number]-ke-[id number] mitral regurgitation. Moderate tricuspid regurgitation. Lgmn-ln-mikactcl aortic regurgitation. Moderate biatrial enlargement. Mildly dilated aortic root of 4.3 cm and ascending aorta of 4.4 cm. PASP 50 mm mercury, mean RAP 15 mm Hg included. Ordering Physician: Claude Austin M.D. Date of Service: 02/26/23 Procedure(s): CT abdomen pelvis wo [facility] Accession Number(s): [id number] cc: Ally Murphy M.D.; Claude Austin M.D.~ For Patients: As a result of the Century Cures Act, medical imaging exams and procedure reports are released immediately into your electronic medical record. You may view this report before your referring provider. If you have questions, please contact your health care provider. INDICATION: . TECHNIQUE: CT abdomen and pelvis without contrast. COMPARISON: None. FINDINGS: Lower chest: Partially imaged left lower lobe consolidation versus atelectasis and pleural effusion. Small right pleural effusion with passive atelectasis. Interlobular septal thickening. Cardiomegaly. Dilated, calcified aortic annulus. Liver: Normal in size and attenuation. No suspicious masses. Gallbladder and bile ducts: No stones or inflammation. No biliary dilatation. Pancreas: Unremarkable. No mass or inflammation. Spleen: Normal in size. No masses. Adrenal glands: Normal in size. No nodules. Kidneys, Ureters, and Bladder: Bilateral renal cortical cysts. No hydronephrosis, stone, or suspicious mass. The ureters and bladder are unremarkable. GI tract: Unremarkable. Normal in caliber. No sign of inflammation. Vasculature: Normal caliber abdominal aorta with mild atherosclerotic calcification. Left internal iliac artery stent. Lymph nodes: No lymphadenopathy. Peritoneum/Abdominal Wall: Unremarkable. No free air or significant free fluid. Pelvis: Status post hysterectomy. No pelvic masses. Bones: Right total hip arthroplasty. IMPRESSION: Left lower lobe consolidation versus atelectasis with bilateral pleural effusions and interlobular septal thickening. These findings are only partially imaged, but could represent pulmonary edema. Infection cannot be excluded. Consider chest CT for further evaluation. No acute findings within the abdomen and pelvis. No urolith or evidence of obstructive uropathy. Multiple, chronic ancillary findings, as above. Please note that all CT scans at this facility use dose modulation, iterative reconstruction, and/or weight-based dosing when appropriate to reduce radiation dose to as low as reasonably achievable. Dictated by Nestor Esteves MD @ 02/26/2023 11:55:04 PM (Electronically Signed) Ordering Physician: Rhiannon Le M.D. Date of Service: 02/27/23 Procedure(s): XR chest 1V portable Accession Number(s): [id number] cc: Ally Murphy M.D.; Rhiannon Le M.D.~ For Patients: As a result of the Cures Act, medical imaging exams and procedure reports are released immediately into your electronic medical record. You may view this report before your referring provider. If you have questions, please contact your health care provider. INDICATION: [id number]. TECHNIQUE: Chest 1 views. COMPARISON: CT abdomen pelvis 02/26/2023. FINDINGS: Cardiovasculature and mediastinum: The cardiac silhouette is mildly enlarged. The pulmonary vascularity is within normal limits. Lungs and pleural spaces: There is a trace left pleural effusion there is patchy airspace opacity left lung base. Right lung is clear. No pneumothorax is detected. Bones and soft tissues: No significant findings. IMPRESSION: Small left pleural effusion and patchy opacity at the left lung base, suspicious for pneumonia in the appropriate clinical context. Dictated by Héctor Dickens MD @ 02/27/2023 8:39:47 AM (Electronically Signed) Labs on day of discharge: Labs from last 24 hours 02/28/23 05:57 INR 2.47 H Discharge Plan Discharge Disposition: Home, Self-Care Date of Admission: 02/27/23 00:46 Attending Provider on Discharge: Rhiannon Le Primary Care Provider: Ally Murphy Condition: Improved Anticipated Discharge Date/Time: 02/28/23 11:50 Discharge Medications: New cefpodoxime 200 mg tablet 200 mg PO BID 5 Days Qty: 10 0RF Rx Instructions: must administer with a meal/food doxycycline hyclate 100 mg capsule 100 mg PO BID 3 Days Qty: 6 0RF Continued vitamin K2 100 mcg capsule 200 mcg PO DAILY Rx Instructions: OTC SUPPLEMENT sotalol 80 mg tablet 80 mg PO BID multivitamin Tablet 1 tab PO QAM cholecalciferol (vitamin D3) 25 mcg (1,000 unit) capsule 25 mcg PO QDAY amlodipine 2.5 mg tablet 2.5 mg PO DAILY Qty: 90 3RF losartan 50 mg tablet 50 mg PO DAILY Qty: 90 3RF simvastatin 10 mg tablet 10 mg PO QPM Qty: 90 3RF levothyroxine 88 mcg tablet 88 mcg PO .UD Qty: 78 3RF Rx Instructions: Take 1 tablet five times a week and 1/2 a tablet 2 times a week. colchicine 0.6 mg tablet 0.6 mg PO TID PRN (Reason: gout) Qty: 30 2RF Rx Instructions: Take three times daily for three days for gout flare. modafinil 100 mg tablet 100 mg PO QDAY Qty: 90 3RF warfarin 4 mg tablet See Rx Instructions .ROUTE .COMPLEX Qty: 60 0RF Protocol: Dose Management Condition: Monday Dose/Route: 2 mg Instruction: 0.5 x 4 mg tablets Condition: Monday Dose/Route: 4 mg Instruction: 1 x 4 mg tablet Condition: Monday Dose/Route: 2 mg Instruction: 0.5 x 4 mg tablets Condition: Monday Dose/Route: 4 mg Instruction: 1 x 4 mg tablet Condition: Dose/Route: 2 mg Instruction: 0.5 x 4 mg tablets Condition: Monday Dose/Route: 4 mg Instruction: 1 x 4 mg tablet Condition: Monday Dose/Route: 2 mg Instruction: 0.5 x 4 mg tablets Protocol Text: Adjustment Start Date: Monday02/03/23 INR Value: 3.2 INR Date: 02/03/23 Recheck Date: 02/10/23 Dose Instruction: TAKE 1 TABLET (4MG) ON Monday AND TAKE 1/2 TAB (2MG) ALL OTHER DAYS (ON MONDAY,MONDAY,MONDAY, MONDAY) Rx Instructions: TAKE 1 TABLET (4MG) ON Monday AND TAKE 1/2 TAB (2MG) ALL OTHER DAYS (ON MONDAY,MONDAY,MONDAY, MONDAY) furosemide 20 mg tablet 20 mg PO 3XW Qty: 36 1RF Discharge Orders: Discharge Order (Routine); Ordered 02/28/23 Ordered By: Rhiannon Le Patient Education: Doxycycline (By mouth), Cefpodoxime Proxetil (By mouth), Heart Failure (DC), Community Acquired Pneumonia (DC) Additional Instructions: Weigh yourself daily approximately the same time in the morning before eating, record results. Take all medications as prescribed. Follow-up with Dr. Murphy in 5-7 days. Follow-up with cardiology in 2-3 weeks. Activity Level: Activity as Tolerated Discharge Diet: Heart Healthy (2 gm sodium, low fat) Follow Up Appointments: Ally Murphy MD [Primary Care Provider] - 03/06/23 10:15 am Homer Morrison [Staff Physician] - 05/09/23 10:00 am Forms: ABA English Info Instructions
[2023-02-28 11:00] VITALS: BP 159/74; PULSE 67; RESP 16; TEMP 36.8; O2SAT 94
[2023-02-28 12:59] LABS: Troponin I* 0.03 ng/mL (0.01-0.04)
--- NOTE | 2023-02-28 15:14 | PC.NURSE ---
D/C: Patient A&O. Hypertensive scheduled hypertensive meds given. Reported chest tightness, EKG done and labs drawn. SBA w/ walker and gait belt. SOB with exertion. Verbal d/c instructions were given to pt. Written instructions sent home with patient. IV removed with tip intact. Awaiting ride home from daughter.
--- NOTE | 2023-02-28 15:32 | PC.NURSE ---
Discharged home with daughter at 1530
--- NOTE | 2023-02-28 16:15 | PC.SOCIAL ---
Phone call to pt's daughter, Taylor, to discuss resources for pt. Pt's daughter states she has an appointment with phong and will be back to [facility] after 3:15 pm. Sent resources in the mail to patients home for transportation to medical appointments and a list of hospice agencies in the area. Social Work will follow up as necessary.
== END 2023-02-28 15:32 | disposition home or self-care (01) ==
LOC: ED 23:17 → MEDSURG 02-27 00:46
PROVIDERS: Family Medicine; Internal Medicine; Admitting Provider Family Medicine; Emergency Provider Family Medicine; PCP Internal Medicine; Visit Provider Family Medicine
DX: J18.9 Pneumonia, unspecified organism (principal); I50.32 Chronic diastolic (congestive) heart failure; R91.8 Other nonspecific abnormal finding of lung field; R79.89 Other specified abnormal findings of blood chemistry; R06.82 Tachypnea, not elsewhere classified; I27.20 Pulmonary hypertension, unspecified; R79.82 Elevated C-reactive protein (CRP); D72.829 Elevated white blood cell count, unspecified; I67.81 Acute cerebrovascular insufficiency; I48.91 Unspecified atrial fibrillation; I13.0 Hypertensive heart and chronic kidney disease with heart failure and stage 1 through stage 4 chronic kidney disease, or unspecified chronic kidney disease; N18.30 Chronic kidney disease, stage 3 unspecified; I08.3 Combined rheumatic disorders of mitral, aortic and tricuspid valves; I77.819 Aortic ectasia, unspecified site; E03.9 Hypothyroidism, unspecified; I63.89 Other cerebral infarction; Z79.01 Long term (current) use of anticoagulants; E78.5 Hyperlipidemia, unspecified; R60.0 Localized edema; F41.9 Anxiety disorder, unspecified; Z51.81 Encounter for therapeutic drug level monitoring; R05.9 Cough, unspecified; Z98.890 Other specified postprocedural states; Z86.79 Personal history of other diseases of the circulatory system; R54 Age-related physical debility; Z79.899 Other long term (current) drug therapy; Z90.710 Acquired absence of both cervix and uterus; Z96.641 Presence of right artificial hip joint; Z87.448 Personal history of other diseases of urinary system; Z85.828 Personal history of other malignant neoplasm of skin; Z90.89 Acquired absence of other organs; Z96.649 Presence of unspecified artificial hip joint; Z98.49 Cataract extraction status, unspecified eye; Z20.822 Contact with and (suspected) exposure to COVID-19
CPT/HCPCS: 36415; 71045; 74176; 80048; 80053; 80076; 82150; 83880; 84145; 84484; 85025; 85610; 85730; 86140; 87502; 87634; 87635; 93005; 93306; 96365; 96366; 96367; 96375; 96376; 97116; 97161; 97165; 97535; 99285; A9270; C9113; G0378; J0696; J1940; J7050

== ENCOUNTER 2023-05-09 12:14 | Outpatient (CLI) | payer OTHER, SELFPAY | END 2023-05-09 12:15 | disposition home or self-care (01) | LOC: AMB 05-11 09:52 | PROVIDERS: PCP Internal Medicine; Visit Provider Family Medicine | DX: I50.9 Heart failure, unspecified (principal) | CPT/HCPCS: A0425; A0429 ==

== ENCOUNTER 2023-05-22 15:05 | Outpatient (CLI) | payer OTHER, SELFPAY | END 2023-05-22 15:06 | disposition home or self-care (01) | PROVIDERS: PCP Internal Medicine; Visit Provider Internal Medicine | DX: I10 Essential (primary) hypertension (principal); E03.9 Hypothyroidism, unspecified; E78.5 Hyperlipidemia, unspecified | CPT/HCPCS: 80048; 85610 ==

== ENCOUNTER 2023-08-10 10:05 | Outpatient (CLI) | payer OTHER, SELFPAY | END 2023-08-10 10:06 | disposition home or self-care (01) | LOC: NFLDREF 08-18 07:54 | PROVIDERS: PCP Internal Medicine; Referring Provider Internal Medicine; Visit Provider Internal Medicine | DX: E03.9 Hypothyroidism, unspecified (principal); E78.5 Hyperlipidemia, unspecified; I27.20 Pulmonary hypertension, unspecified; N18.2 Chronic kidney disease, stage 2 (mild); I10 Essential (primary) hypertension; Z79.01 Long term (current) use of anticoagulants | CPT/HCPCS: 80048; 80061; 84443 ==

== ENCOUNTER 2023-11-27 01:27 | Emergency (ER) | payer OTHER, SELFPAY ==
[2023-11-27 01:36] VITALS: BP 147/94; PULSE 83; RESP 20; TEMP 36.3; O2SAT 96; BMI 26.8
[2023-11-27 01:40] VITALS: O2SAT 94
--- NOTE | 2023-11-27 01:41 | ED_ITS ---
HPI - General Adult General Chief complaint: Cough Stated complaint: Congestion Time Seen by Provider: 11/27/23 01:33 History of Present Illness HPI narrative: Patient arrives via [facility] with c/o cough and congestion since Monday. Patient is unsure of fever /chills. Patient states she has h/o pneumonia and CHF. Afib on the monitor HR 83. 78-year-old woman presenting to the emergency department with complaint of shortness of breath and some cough over the last 5 days. Has not had any fever. She says in response to whether not she has had chills ?I am always cold?. Daughter accompanies and does some of the talking noting that Ms. Live gets pneumonia every year. Daughter appears to be anticipating admission. Later also she notes that her mother has been puffy and apparently weaker since starting metoprolol which would have been in spring of this year by Cardiology; would like her admitted for this reason. Does have a history of heart failure looks like on review of records with preserved ejection fraction. Takes furosemide 20 mg 3 times a week as a understand it. Is anticoagulated with home checks status post TAVR and in persistent atrial fibrillation. Related Data Home Medications Medication Instructions Recorded Confirmed cholecalciferol (vitamin D3) 25 25 mcg PO QDAY 06/20/22 11/27/23 mcg (1,000 unit) capsule multivitamin 1 tab PO QAM 06/20/22 11/27/23 vitamin K2 100 mcg capsule 200 mcg PO DAILY 06/20/22 08/15/23 metoprolol succinate 100 mg 100 mg PO QDAY 05/22/23 11/27/23 tablet,extended release 24 hr rosuvastatin 10 mg tablet 20 mg PO QHS 05/22/23 11/27/23 furosemide 20 mg tablet 20 mg PO .COMPLEX 11/27/23 11/27/23 levothyroxine 88 mcg tablet 44 - 88 mcg PO .COMPLEX 11/27/23 11/27/23 warfarin 4 mg tablet See Rx Instructions .Route .COMPLEX 11/27/23 11/27/23 Previous Rx's Medication Instructions Recorded colchicine 0.6 mg tablet 0.6 mg PO TID PRN gout #30 tabs 11/17/22 losartan 50 mg tablet 50 mg PO DAILY #90 tabs 07/05/23 modafinil 100 mg tablet 100 mg PO QDAY #90 tabs 09/07/23 clindamycin HCl 300 mg capsule 600 mg (2 x 300 mg) PO ONCE #2 caps 11/13/23 doxycycline monohydrate 100 mg 100 mg PO ONCE #1 cap 11/14/23 capsule Allergies Allergy/AdvReac Type Severity Reaction Status Date / Time gadodiamide Allergy Severe Anaphalacti Verified 08/15/23 13:32 c adhesive Allergy Intermediate Blisters Verified 08/15/23 13:32 benzoin Allergy Mild Garcia Verified 08/15/23 13:32 codeine Allergy Mild Swelling Verified 08/15/23 13:32 meperidine Allergy Mild Hypersensitive, Verified 08/15/23 13:32 headaches penicillin V Allergy Mild Swelling Verified 08/15/23 13:32 vancomycin Allergy Mild Body Verified 08/15/23 13:32 turned red, burning sensation shellfish derived Allergy Unknown Verified 08/15/23 13:32 Contrast dye Allergy Severe Anaphalacti Uncoded 08/15/23 13:32 c Erythromycin Allergy Severe Swelling Uncoded 08/15/23 13:32 of tongue DIATRIZOATE MEGLUMINE (IV Allergy Unknown Uncoded 08/15/23 13:32 CONTRAST UNLISTED ALLERGEN (INCLUDE Allergy Unknown Uncoded 08/15/23 13:32 DETAIL I Review of Systems Status of ROS: Reports: 6 or more systems reviewed and unremarkable except as noted in History and below [facility] Medical History History of aortic regurgitation ?Z86.79 - Personal history of other diseases of the circulatory system (ICD- 10) History of aortic stenosis ?Z86.79 - Personal history of other diseases of the circulatory system (ICD-10) History of myocarditis (1978) ?Z86.79 - Personal history of other diseases of the circulatory system (ICD- 10) Surgical History S/P TAVR (transcatheter aortic valve replacement) ?Z95.2 - Presence of prosthetic heart valve (ICD-10) History of aortic valve replacement ?Z95.2 - Presence of prosthetic heart valve (ICD-10) History of skin cancer ?Z85.828 - Personal history of other malignant neoplasm of skin (ICD-10) Status post cataract extraction (2012) ?Z98.49 - Cataract extraction status, unspecified eye (ICD-10) History of vaginal hysterectomy (1989) ?Z90.710 - Acquired absence of both cervix and uterus (ICD-10) History of total knee replacement (1996) ?Z96.659 - Presence of unspecified artificial knee joint (ICD-10) History of total hip replacement (2007) ?Z96.649 - Presence of unspecified artificial hip joint (ICD-10) History of tonsillectomy (1945) ?Z90.89 - Acquired absence of other organs (ICD-10) History of carpal tunnel release (03/07/18) ?Z98.890 - Other specified postprocedural states (ICD-10) History of bladder suspension procedure (1980) ?Z98.890 - Other specified postprocedural states (ICD-10) ?Z87.448 - Personal history of other diseases of urinary system (ICD-10) History of benign breast biopsy (1989) ?Z98.890 - Other specified postprocedural states (ICD-10) Family History Brother Colon cancer Social History (Updated 08/15/23 @ 15:45 by Aurora Morel ~ [facility]) What is your current living situation?: I presently have a place to live Problems where you live: no known problems In the past 12 months, utilities in danger of being shut off: no In past 12 months, lack of transportation kept you from medical appts, meetings, work, or getting things needed for daily living: no In the past 12 mos, have been you worried that your food would run out before you had money to buy more?: never true In the past 12 mos, the food you bought just didn't last and you didn't have money to buy more?: never true Highest level of school completed/degree received: Associate degree: occupational, technical, vocational program Smoking Status: Never smoker Do you use any of these nicotine containing products: None Second hand tobacco smoke exposure: No How often do you have a drink containing alcohol: never How often do you have six or more drinks on one occasion: Never AUDIT-C Alcohol total score: 0 Non-prescribed substance use: denies use Caffeine: Yes (coffee) How often does anyone, including family, friends and others, physically hurt you : never How often does anyone, including family, friends and others, insult or talk down to you: never How often does anyone, including family, friends and others, threaten you with harm: never How often does anyone, including family, friends and others, scream or curse at you: never Little interest or pleasure in doing things: several days Feeling down, depressed, or hopeless: not at all service: No Exam Narrative: Exam Narrative: Fully alert. Pleasant. Does sound a little congested. Oropharynx is moist. Extremities are well perfused and without edema. Moving all extremities with good strength in the bed. Lungs with diffuse crepitus. No wheeze. Heart actually sounds to be in a fairly regular rhythm. Some ectopy. Abdomen is soft, nontender. Cranial nerves 2-12 intact. Const: Vital Signs, click to edit/add: Vital Signs - 24 hr 11/27/23 01:36 Temperature 97.4 F L Pulse Rate [Left P ulse Oximeter] 83 Respiratory Rate 20 Blood Pressure [Le ft Upper Arm] 147/94 H Pulse Oximetry 96 Oxygen Delivery Me thod Room Air Documenting provider has reviewed patient's vital signs: yes Course Vital Signs Vital signs: Initial Vital Signs Temperature 97.4 F L 11/27/23 01:36 Temperature Source Temporal Artery Scan 11/27/23 01:36 Pulse Rate 83 11/27/23 01:36 Pulse Rhythm Irregular 11/27/23 01:36 Respiratory Rate 20 11/27/23 01:36 Blood Pressure 147/94 H 11/27/23 01:36 Blood Pressure Mean 111 H 11/27/23 01:36 Blood Pressure Position Semi-Fowlers 11/27/23 01:36 Pulse Oximetry 96 11/27/23 01:36 Oxygen Delivery Method Room Air 11/27/23 01:36 Vital Signs Temperature 97.4 F L 11/27/23 01:36 Pulse Rate 83 11/27/23 01:36 Respiratory Rate 20 11/27/23 01:36 Blood Pressure 147/94 H 11/27/23 01:36 Pulse Oximetry 96 11/27/23 01:36 Oxygen Delivery Method Room Air 11/27/23 01:36 Temperature 97.4 F L 11/27/23 01:36 Pulse Rate 83 11/27/23 01:36 Respiratory Rate 20 11/27/23 01:36 Blood Pressure 147/94 H 11/27/23 01:36 Pulse Oximetry 94 11/27/23 01:40 Oxygen Delivery Method Room Air 11/27/23 01:36 Medical Decision Making MDM Narrative Medical decision making narrative: Certainly would evaluate for infectious etiology to her cough and shortness of breath. May be a CHF exacerbation. Will triple swab as well looking for COVID or influenza or RSV. Chest x-ray Labs returned with normal white count and normal triple screen. I return with this and chest x-ray reviewed by me which I think shows a little congestion it in the lungs I do not see an overt pneumonia. Postoperative changes noted. Radiology over-read noting ?no acute pulmonary process?. In response to query by daughter whether not will be admitting, I responded I do not have all the labs back. And furthermore noted that I have not seen any reason for admission with stable vitals, so far normal white count and anticipating IV diuretic dosing. Discussed potential observation status. Response is ?have you seen her walk?? considering the ice outside is also mentioned. ?Would you really kick her out at 2:30 a.m. in the morning? Labs are overall reassuring. ProBNP is elevated at 6960 which is lower than last measured. Uncertain significance. No baseline/regular weights. Normal white count. Baseline creatinine Daughter has done reading on metoprolol and feels that mother is more weak and would have expected more improvement from cardiac rehab. She feels that metoprolol is contributing to further weakness. It sounds as though there was 1 week recently where went off of metoprolol and seemed to have more strength. Daughter had been upset that I would consider discharge. They had been asking to leave now and so nursing pulled IV. I did return to discuss all anticipating IV diuretic for what I think might be some CHF exacerbation and possibly unspecified viral URI. Initially it appears there was somewhat of a misunderstanding about my intentions. If weakness is too much can certainly admit. This however does not appear to be an acute issue. Ms. Live described her shortness of breath as the reason for presenting initially. Ms. Live is noted to be getting about the room without significant difficulty. She does not feel that she is too weak to return home. Lives with family. Will trial increasing dosing of furosemide and reassess. If worsening, can certainly return See patient discharge plan Lab Data Lab results reviewed: Yes I reviewed the patient's lab results Labs: Lab Results 11/27/23 11/27/23 Range/Units 01:40 02:00 WBC 8.48 (4.50-11.00) K/uL RBC 4.23 (4.00-5.20) m/uL Hgb 12.5 (12.0-16.0) gm/dL Hct 38.8 (33.0-51.0) % MCV 92 (80-100) fL MCH 30 (26-34) pg MCHC 32 (32-36) gm/dL RDW Coeff of Caleb 15.3 (11.5-15.5) % Plt Count 184 (140-440) K/uL Neut % (Auto) 59.7 (42.0-72.0) % Lymph % (Auto) 19.9 L (20-44) % Wheeler % (Auto) 10.0 (0.0-11.0) % Eos % (Auto) 8.8 H (0.0-7.0) % Baso % (Auto) 0.7 (0.0-3.0) % Neut # (Auto) 5.05 (1.7-7.0) K/uL Lymph # (Auto) 1.70 (0.90-2.90) K/uL Wheeler # (Auto) 0.80 (0.00-0.90) K/UL Eos # (Auto) 0.70 H (0.00-0.50) K/uL Baso # (Auto) 0.06 (0.00-0.30) K/uL Abs Immat Gran (auto) 0.08 (0.00-0.30) K/uL Imm/Tot Granulo (auto) 0.9 % INR 2.04 H (0.91-1.10) Sodium 139 (135-149) mmol/L Potassium 3.8 (3.6-5.1) mmol/L Chloride 109 (96-114) mmol/L Carbon Dioxide 18 L (20-32) mmol/L Anion Gap 12 (7-15) mEq/L BUN 31 H (7-30) mg/dL Creatinine 1.5 (0.5-1.5) mg/dL Estimated Creat Clear 26.92 Estimated GFR 35 ml/min Glucose 132 H (60-115) mg/dL Calcium 8.4 (8.4-10.6) mg/dL NT-Pro-B Natriuret Pep 6960 pg/mL SARS-CoV-2 (PCR) Negative SARS-CoV-2 (Negative) Influenza Type A (PCR) Negative PCR FLU A (Negative) Influenza Type B (PCR) Negative PCR FLU B (Negative) RSV (PCR) Negative PCR RSV (Negative) Discharge Plan Discharge Clinical Impression: Chest congestion, Cough Patient Disposition: Home w/ Parent or Adult Condition: Stable Additional Instructions: I am reassured by your vitals for now. Does sound as though you need to discuss your metoprolol with your primary care provider or mathematics education professor. You may be experiencing somewhat of a CHF exacerbation. With that in mind I would like you to take 40 mg of furosemide daily over the next 3 days and then reassess you feel. Of course return for persistent and increased shortness of breath, chest pain, worsening weakness, associated fever. Prescriptions: No Action vitamin K2 100 mcg capsule 200 mcg PO DAILY Rx Instructions: OTC SUPPLEMENT multivitamin Tablet 1 tab PO QAM cholecalciferol (vitamin D3) 25 mcg (1,000 unit) capsule 25 mcg PO QDAY metoprolol succinate 100 mg tablet extended release 24 hr 100 mg PO QDAY rosuvastatin 10 mg tablet 20 mg PO QHS warfarin 4 mg tablet See Rx Instructions .ROUTE .COMPLEX Protocol: Dose Management Condition: Monday Dose/Route: 2 mg Instruction: 0.5 x 4 mg tablets Condition: Monday Dose/Route: 4 mg Instruction: 1 x 4 mg tablet Condition: Monday Dose/Route: 2 mg Instruction: 0.5 x 4 mg tablets Condition: Monday Dose/Route: 2 mg Instruction: 0.5 x 4 mg tablets Condition: Dose/Route: 4 mg Instruction: 1 x 4 mg tablet Condition: Monday Dose/Route: 2 mg Instruction: 0.5 x 4 mg tablets Condition: Monday Dose/Route: 2 mg Instruction: 0.5 x 4 mg tablets Protocol Text: Adjustment Start Date: Monday10/30/23 INR Value: 3.3 INR Date: 10/30/23 Recheck Date: 11/13/23 Rx Instructions: 4mg on Monday, Monday, Monday, 2mg on Monday, , Monday, Monday levothyroxine 88 mcg tablet 44 - 88 mcg PO .COMPLEX Rx Instructions: Take 1 tablet on Monday, Monday, , Monday, and Monday and 1/2 a tablet on Monday, Monday furosemide 20 mg tablet 20 mg PO .COMPLEX Rx Instructions: 20 mg orally M,W,F; colchicine 0.6 mg tablet 0.6 mg PO TID PRN (Reason: gout) Qty: 30 2RF Rx Instructions: Take three times daily for three days for gout flare. losartan 50 mg tablet 50 mg PO DAILY Qty: 90 2RF modafinil 100 mg tablet 100 mg PO QDAY Qty: 90 3RF clindamycin HCl 300 mg capsule 600 mg PO ONCE Qty: 2 0RF doxycycline monohydrate 100 mg capsule 100 mg PO ONCE Qty: 1 0RF Follow Up/Referrals: Ally Murphy MD [Primary Care Provider] - Stand Alone Forms: [facility] Info Instructions
--- NOTE | 2023-11-27 01:51 | CRLHL7_ITS ---
For Patients: As a result of the Century Cures Act, medical imaging exams and procedure reports are released immediately into your electronic medical record. You may view this report before your referring provider. If you have questions, please contact your health care provider. INDICATION: Cough and generalized chest congestion. TECHNIQUE: Chest 1 view. COMPARISON: 02/27/2023. FINDINGS: Cardiovascular and mediastinum: Heart size and vasculature are normal in caliber and appearance. Postsurgical changes of TAVR. Lungs and pleural spaces: Lungs are clear. No sign of infiltrate or mass. No sign of pleural effusion. No pneumothorax. Bones and soft tissues: No significant findings. IMPRESSION: No acute pulmonary process. Dictated by Kevin Lawson MD @ 11/27/2023 2:13:35 AM (Electronically Signed)
[2023-11-27 02:10] LABS: Basophils Absolute Auto 0.06 K/uL (0.00-0.30); Basophils Percent Auto 0.7 % (0.0-3.0); Eosinophils Percent Auto 8.8 % (0.0-7.0); Hematocrit 38.8 % (33.0-51.0); Hemoglobin* 12.5 gm/dL (12.0-16.0); Immature Granulocytes Abs Auto 0.08 K/uL (0.00-0.30); Immature Granulocytes Pct Auto 0.9 %; Lymphocytes Percent Auto 19.9 % (20-44); Mean Corpuscular HGB Conc 32 gm/dL (32-36); Mean Corpuscular Hemoglobin 30 pg (26-34); Mean Corpuscular Volume 92 fL (80-100); Neutrophils Absolute Auto 5.05 K/uL (1.7-7.0); Neutrophils Percent Auto 59.7 % (42.0-72.0); Platelet Count* 184 K/uL (140-440); RDW Coefficient of Variation % 15.3 % (11.5-15.5); Red Blood Count 4.23 m/uL (4.00-5.20); White Blood Count* 8.48 K/uL (4.50-11.00)
[2023-11-27 02:11] LABS: Slide Review Reflex No
[2023-11-27 02:16] LABS: PCR FLU A Negative PCR FLU A (Negative); PCR FLU B Negative PCR FLU B (Negative); PCR RSV Negative PCR RSV (Negative); SARS PCR* Negative SARS-CoV-2 (Negative)
[2023-11-27 02:22] LABS: Chloride* 109 mmol/L (96-114); Potassium* 3.8 mmol/L (3.6-5.1); Sodium* 139 mmol/L (135-149)
[2023-11-27 02:25] LABS: Anion Gap 12 mEq/L (7-15); Carbon Dioxide* 18 mmol/L (20-32); Creatinine* 1.5 mg/dL (0.5-1.5); Est. Creatinine Clearance* 26.92; Estimated Glomerular Filt Rate 35 ml/min; INR 2.04 (0.91-1.10); Prothrombin Time 24.6 Seconds
[2023-11-27 02:26] LABS: Blood Urea Nitrogen* 31 mg/dL (7-30); Calcium* 8.4 mg/dL (8.4-10.6); Glucose* 132 mg/dL (60-115)
[2023-11-27 02:35] LABS: NT Pro B Type NatriureticPept* 6960 pg/mL
--- NOTE | 2023-11-27 02:59 | ED.NURSE ---
Patient's daughter at nurse's station asking to have her mother dressed for discharge. Patient is dressed and assisted to the bathroom. MD in room with patient/family.
== END 2023-11-27 03:19 | disposition home or self-care (01) ==
PROVIDERS: Emergency Provider Family Medicine; PCP Internal Medicine
DX: R05.9 Cough, unspecified (principal); R07.89 Other chest pain
CPT/HCPCS: 36415; 71045; 80048; 83880; 85025; 85610; 87631; 94761; 99284

== ENCOUNTER 2024-08-27 11:55 | Outpatient (CLI) | payer OTHER, SELFPAY ==
--- OUTSIDE RECORDS SUMMARY | 2024-08-28 11:15 | XMS_ITS | Clinical Summary ---
Author Organization [employer] [facility] Address [place], [place] [address] Care Team Providers Care Medical Doctor Nuclear Medicine Name Role Phone Ally Murphy MD Primary Care Provider [phone] Allergies Active Allergy Reactions Criticality Noted Date Comments Codeine Rash 12/18/2016 Diatrizoate Allergen Anaphylaxis High 09/07/2018 Erythromycin Angioedema 10/06/2011 Unlisted Allergen (Include Detail In Comments) Anaphylaxis High 09/07/2018 TPA - clot buster Penicillins Angioedema 10/06/2011 Shellfish Derived Hives 09/07/2018 Vancomycin vancomycin infusion reaction (cutaneous flushing/non-allergic reaction) 09/07/2018 Medications Medication Sig Dispensed Refills Start Date End Date Status warfarin (COUMADIN) 4 mg tablet Take 4mg on Mon, Mon, Mon; and 2mg all other days of the week 0 05/29/2018 Active levothyroxine (SYNTHROID) 88 mcg tablet Take 44-88 mcg by mouth once daily. Take 88 mcg daily except take a half tablet (44 mcg) on Monday and Monday06/11/2018 Active furosemide (LASIX) 20 mg tabletIndications:Ac troy on chronic diastolic heart failure (HC) Take 1 tablet Monday, Monday, Monday. May take an additional tablet as needed 15 tablet 06/06/2019 Active multivit-min/iron/fo lic/lutein (MULTIVITAMIN WOMEN 50 PLUS ORAL) Take 1 Tablet by mouth once daily. 0 10/05/2018 Active colchicine 0.6 mg tablet Take 0.6 mg by mouth 3 times daily if needed for Gout Pain. for 3 days 11/18/2022 Active losartan (COZAAR) 50 mg tablet Take 50 mg by mouth once daily. Active modafiniL (PROVIGIL) 100 mg tablet Take 100 mg by mouth every morning. 03/15/2023 Active cholecalciferol, vitD3,/vit K2 (VITAMIN D3-VITAMIN K2 ORAL) Take 1 Tablet by mouth once daily. Active predniSONE (DELTASONE) 20 mg tabletIndications:Al lergic reaction to dye, subsequent encounter Take 60 mg the evening before your CT scan. Take 60 mg the morning of your CT scan. 6 Tablet 10/10/2023 Active vitamin D3-vitamin K2, MK4, (K2 Plus D3) 1,000-100 unit-mcg tab tablet Take 1 Tablet by mouth once daily. 12/22/2023 Active metoprolol succinate (TOPROL XL) 25 mg Sustained-Release tabletIndications:Pa roxysmal atrial fibrillation (HC) Take 1 Tablet (25 mg) by mouth once daily. Appointment required for future refills. Please dial [phone] to schedule. 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 Hypothyroidism Hypertension Gout Acute on chronic diastolic heart failure Encounters Date Type Department Care Team Description 07/10/2024 Refill [facility] [place] [address] [place] [address] Tom Sun MD Refill Request (Metoprolol Succinate) from Last 3 Months Social History Tobacco Use Types Packs/Day Years Used Date Smoking Tobacco: Never Smokeless Tobacco: Never Alcohol Use Standard Drinks/Week Comments Not Currently 0 (1 standard drink = 0.6 oz pur e alcohol) rarely PHQ-2 Answer Date Recorded PHQ-2 TOTAL SCORE 0 09/12/2023 Social Connections Answer Date Recorded Frequency of Communication with Friends and Fami ly Not on file 11/27/2021 Financial Resource Strain Answer Date R ecorded Difficulty of Paying Living Expenses Not on file 11/27/2021 Difficulty of Paying Living Expenses Not on file 11/27/2021 Sex and Gender Information Value Date Recorded Sex Assigned at Not on file Gender Identity Not on file Sexual Orientation Not on file Obstetrics History Last Filed Vital Signs Vital Sign Reading Time Taken Comments Blood Pressure 151/78 12/22/2023 9:40 AM SALES LEDGER CLERK Pulse 135 12/22/2023 9:40 AM SALES LEDGER CLERK Temperature 36.3 ??C (97.3 ??F) 05/19/2023 11:35 AM C DT Respiratory Rate 20 06/07/2023 2:00 PM CDT Oxygen Saturation 98% 12/22/2023 9:40 AM SALES LEDGER CLERK Inhaled Oxygen Concentration - - Weight 77.7 kg (171 lb 6.4 oz) 12/22/2023 9:40 A M SALES LEDGER CLERK Height 167 cm (5' 5.75) 12/22/2023 9:40 AM SALES LEDGER CLERK Body Mass Index 27.88 12/22/2023 9:40 AM SALES LEDGER CLERK Plan of Treatment Health Maintenance Due Date Last Done Comments Pneumococcal series for age 65+ (1 of 2 - PCV) 1949 Tdap 1954 Tetanus booster 1963 Zoster (shingles) series for age 50+ (1 of 2) 1993 DEXA/DXA scan for age 65+ 2008 Medicare Wellness for age 65+ 2008 RSV vaccine for adults or (1 - 1-dose 75+ series) 2018 COVID-19 vaccine series ( season) 2024 Influenza for age 65+ 07/28/2024 Depression screening for age 12+ 09/06/2024 09/06/2023, 06/09/2023, 06/07/2023 BMI (ht and wt on same day) for age 18+ 12/22/2024 12/22/2023, 10/06/2023, 07/07/2023, Additional history exists Advance Directives * Full Code (Latest Code Status on File) Date Activated Date Inactivated Comments 05/09/2023 7:16 PM 05/19/2023 4:39 PM Question Answer Comments Code Status Discussion: Reviewed Preferences * Full Code Date Activated Date Inactivated Comments 09/07/2018 9:33 AM 09/09/2018 3:43 PM Care Teams Medical Doctor Nuclear Medicine Relationship Specialty Start Date End Date Ally Murphy MD [address] [place] [address] PCP - General Internal Medicine 05/27/19
== END 2024-08-27 11:56 | disposition home or self-care (01) ==
LOC: NFLDREF 08-28 11:13
PROVIDERS: PCP Internal Medicine; Referring Provider Internal Medicine; Visit Provider Internal Medicine
DX: I48.20 Chronic atrial fibrillation, unspecified (principal); I10 Essential (primary) hypertension; E78.5 Hyperlipidemia, unspecified; I50.30 Unspecified diastolic (congestive) heart failure; E03.9 Hypothyroidism, unspecified; I27.20 Pulmonary hypertension, unspecified; I77.810 Thoracic aortic ectasia; N18.30 Chronic kidney disease, stage 3 unspecified
CPT/HCPCS: 80048; 80061; 84443

== ENCOUNTER 2025-08-28 09:25 | Outpatient (CLI) | payer MEDICARE, BC, SELFPAY | END 2025-08-28 09:26 | disposition home or self-care (01) | PROVIDERS: PCP Internal Medicine; Visit Provider Internal Medicine | DX: I10 Essential (primary) hypertension (principal); E03.9 Hypothyroidism, unspecified | CPT/HCPCS: 80048; 84443 ==